=== PATIENT | male | born 1955 | race Caucasian/White ===

== ENCOUNTER 2016-12-12 17:54 | Inpatient (IN) ==
[2016-12-12] MEDS ORDERED: Aspirin 81 MG TAB.CHEW PO ONE (18:52)
[2016-12-12 19:01] LABS: Basophils # 0.1 K/mcL (0.0-0.2); Basophils % 0.7 %; Eosinophils # 0.2 K/mcL (0.0-0.6); Eosinophils % 3.1 %; Hematocrit 45.1 % (37.5-50.1); Hemoglobin 14.7 g/dL (12.9-16.9); Immature Granulocytes % 0.4 % (0-4); Immature Platelets 1.5 % (1.1-6.1); Lymphocytes % 13.7 %; Mean Corpuscular HGB Conc 32.6 g/dL (31.6-35.5); Mean Corpuscular Hemoglobin 29.6 pg (28.0-33.3); Mean Corpuscular Volume 90.9 fL (83.0-100.0); Mean Platelet Volume 9.2 fL (9.4-12.4); Monocytes # 0.8 K/mcL (0.0-1.3); Monocytes % 11.2 %; Neutrophils # 5.3 K/mcL (1.6-8.9); Platelet Count 180 K/mcL (140-400); Red Blood Count 4.96 M/mcL (4.19-5.50); Red Cell Distribution Width 13.3 % (11.5-14.5); Segmented Neutrophils % 70.9 %
[2016-12-12 19:14] LABS: Alanine Aminotransferase 66 Units/L (0-55); Albumin 3.4 g/dL (3.5-5.0); Albumin/Globulin Ratio 0.8 (1.1-2.2); Alkaline Phosphatase 184 Units/L (38-126); Amylase 50 Units/L (25-125); Aspartate Amino Transferase 51 Units/L (5-34); BUN/Creatinine Ratio 17 (6-26); Bilirubin,Direct 0.7 mg/dL (0.0-0.5); Bilirubin,Indirect 0.6 mg/dL (0.0-1.2); Bilirubin,Total 1.3 mg/dL (0.2-1.2); Blood Urea Nitrogen 17 mg/dL (8-26); Calcium 10.3 mg/dL (8.6-10.8); Carbon Dioxide 20 mEq/L (19-29); Chloride 104 mEq/L (98-109); Globulin 4.2 g/dL (2.4-3.5); Glucose 130 mg/dL (70-99); Lipase 20 Units/L (8-78); Osmolality,Calculated 281 (280-300); Potassium 4.8 mEq/L (3.5-4.5); Sodium 134 mEq/L (136-145); Total Protein 7.6 g/dL (6.0-8.3); eGFR For African Americans > 60 (> 60); eGFR For Non-African Americans > 60 (> 60)
[2016-12-12] MEDS ORDERED: GI Cocktail 40 ML EACH PO ONE (19:44)
--- NOTE | 2016-12-12 19:55 | Emergency Department Note ---
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 Patient' s had a progression of worsening intake of solids to liquids. Patient is complaining of some chest pain on the left side and localizes it to the left ribs. Patient states that he has GI follow-up for a consultation to set up an upper endoscopy in 2 weeks. He states that he cannot handle the pain and discomfort while he was consuming food anymore. Pain Scale: 8 - Related Data Previous Rx's Medication Instructions Recorded Albuterol Sulfate [Albuterol 2 puff IH Q6HR PRN #1 hfa.aer.ad 11/08/15 Inhaler] HYDROcodone/Acet 5/325 mg [Sharps 1 tab PO Q4-6H PRN #30 tablet 12/15/16 5-325 mg] Nicotine Patch [Nicoderm] 21 mg TD DAILY #30 patch.td24 12/15/16 Omeprazole [PriLOSEC] 40 mg PO DAILY #30 cap 12/15/16 Allergies Allergy/AdvReac Type Severity Reaction Status Date / Time iodine Allergy Vomiting Verified 12/12/16 18:13 All systems ED: reviewed and negative except as stated. Constitutional: Reports: weakness, weight change (30 pound weight loss in 2 months). Denies: fever, chills ENT ED: Reports: dysphagia. Denies: congestion Cardiovascular: Reports: chest pain (Left-sided, and retrosternal). Denies: edema Respiratory: Reports: cough. Denies: dyspnea Gastrointestinal: Reports: abdominal pain (Epigastric). Denies: nausea, vomiting Musculoskeletal: Denies: back pain, neck pain Integumentary: Denies: rash Neurological: Denies: weakness, numbness, paresthesias Past Medical History - Past Medical History Medical history: Reports: diabetes Psychiatric history: Reports: no psych history - Social History Smoking Status: Current every day smoker Smokeless Tobacco Status: No Alcohol use: Reports: none Drug use: Reports: none Physical Exam - General Limitations: no limitations General appearance: alert, in no apparent distress - Head Head exam: atraumatic, normocephalic - Eye Eye exam: Absent: scleral icterus, conjunctival injection - ENT ENT exam: mucous membranes dry - Neck Neck exam: Present: trachea midline. Absent: tenderness, meningismus - Chest Chest inspection: Present: normal inspection, symmetric chest wall rise, tenderness (To palpation of the left ribs, sternum) - Respiratory Respiratory exam: Present: normal lung sounds bilaterally. Absent: respiratory distress, accessory muscle use - Cardiovascular Cardiovascular exam: Present: normal rhythm, tachycardia, normal heart sounds - Abdominal Exam Abdominal exam: Present: soft, tenderness. Absent: rebound Abdominal tenderness: Present: diffuse, moderate (Tenderness to palpation) - Extremities Exam Extremities exam: Present: normal capillary refill. Absent: pedal edema, calf tenderness - Neurological Exam Neurological exam: Present: alert, oriented X3, CN II-XII intact - Psychiatric Psychiatric exam: Present: normal affect, normal mood - Skin Skin exam: Present: warm, dry, intact, normal color, rash Course Course Narrative: This is a 61-year-old male with a 2 month history of weight loss and worsening dysphagia from solids liquids. This time, this is most concerning for cancer of the esophagus. Patient had normal vital signs. We performed a chest x-ray, EKG, d-dimer, CBC, CMP, troponin. D-dimer came back elevated and we performed a CT angiogram of the chest. - Reevaluation(s) Reevaluation #1: Patient and elevated hepatic transaminases. We ordered a right upper quadrant ultrasound. This revealed innumerable hypoechoic masses throughout the liver with largest measuring 5.8 x 4.6. Findings here were most compatible with metastatic disease. CTA of the chest performed revealed findings are compatible with an esophageal carcinoma with evidence of metastatic disease to the lower mediastinum, the upper abdominal lymph nodes, the left adrenal gland, and to the liver. I discussed these findings with the patient and the diagnosis of his esophageal mass as well as the metastasis to his liver, adrenal gland, and mediastinum. I admitted this patient to the hospitalist due to further management and evaluation of his new diagnosis. The hospitalist agreed to accept admission. Family understands that the patient has esophageal cancer with metastasis to multiple organs. Patient was given 4 morphine during his visit. He was also offered more if he needed it. Patient is currently hemodynamically stable upon admission to the hospital. Chest X-Ray 12/12/16 18:14 IMPRESSION: No acute process. D/ / Karl Hernandez MD / Karl Hernandez MD Interpreting Provider: Karl Hernandez MD Chest CTA 12/12/16 19:57 IMPRESSION: 1. Findings are most compatible with in esophageal carcinoma with evidence of metastatic disease to the lower mediastinum, the upper abdominal lymph nodes, the left adrenal gland, and to the liver. Direct visualization and histopathologic correlation is necessary. 2. No evidence of pulmonary embolism or aortic dissection. D/ / Obinna Pérez MD / Obinna Pérez MD Interpreting Provider: Obinna Pérez MD Liver Ultrasound 12/12/16 20:18 IMPRESSION: 1. Innumerable hypoechoic masses throughout the liver with the largest measuring 5.8 x 4.6 cm. Findings most compatible with metastatic disease and contrasted CT of the abdomen is recommended for further evaluation. D/ / Jelani Yañez MD / Jelani Yañez MD Interpreting Provider: Jelani Yañez MD Vital Signs Temperature 98.1 F 12/12/16 18:10 Pulse Rate 101 12/12/16 18:10 Respiratory Rate 18 12/12/16 18:10 Blood Pressure 119/56 12/12/16 18:10 O2 Sat by Pulse Oximetry 94 12/12/16 18:10 Temperature 98.1 F 12/12/16 18:10 Pulse Rate 69 12/12/16 23:13 Respiratory Rate 22 12/12/16 22:04 Blood Pressure 109/67 12/12/16 23:13 O2 Sat by Pulse Oximetry 94 12/12/16 23:13 Oxygen Delivery Oxygen Delivery Room Air Time: 22:55 Vital Signs Temperature 98.1 F 12/12/16 18:10 Pulse Rate 101 12/12/16 18:10 Respiratory Rate 18 12/12/16 18:10 Blood Pressure 119/56 12/12/16 18:10 O2 Sat by Pulse Oximetry 94 12/12/16 18:10 Temperature 97.4 F L 12/15/16 17:22 Pulse Rate 79 12/15/16 17:22 Respiratory Rate 16 12/15/16 17:22 Blood Pressure 126/75 12/15/16 17:22 O2 Sat by Pulse Oximetry 94 12/15/16 17:22 Oxygen Delivery Oxygen Delivery Room Air Medical Decision Making - Medical Records Medical records reviewed: Yes I reviewed the patient's medical records. - Lab Data Lab results reviewed: Yes I reviewed the patient's lab results. Result diagrams: 12/12/16 18:50 12/12/16 18:50 Lab Results 12/12/16 12/12/16 12/12/16 Range/Units 18:50 18:50 18:50 WBC 7.5 (4.3-11.1) K/mcL RBC 4.96 (4.19-5.50) M/mcL Hgb 14.7 (12.9-16.9) g/dL Hct 45.1 (37.5-50.1) % MCV 90.9 (83.0-100.0) fL MCH 29.6 (28.0-33.3) pg MCHC 32.6 (31.6-35.5) g/dL RDW 13.3 (11.5-14.5) % Plt Count 180 (140-400) K/mcL MPV 9.2 L (9.4-12.4) fL Immature Gran % 0.4 (0-4) % Seg Neutrophils % 70.9 % Lymphocytes % 13.7 % Monocytes % 11.2 % Eosinophils % 3.1 % Basophils % 0.7 % Neutrophils # 5.3 (1.6-8.9) K/mcL Lymphocytes # 1.0 (0.6-4.6) K/mcL Monocytes # 0.8 (0.0-1.3) K/mcL Eosinophils # 0.2 (0.0-0.6) K/mcL Basophils # 0.1 (0.0-0.2) K/mcL Immature Plt Fraction 1.5 (1.1-6.1) % PT (9.4-12.1) Seconds INR D-Dimer (0-500) ng/mLFEU Sodium 134 L (136-145) mEq/L Potassium 4.8 H (3.5-4.5) mEq/L Chloride 104 (98-109) mEq/L Carbon Dioxide 20 (19-29) mEq/L BUN 17 (8-26) mg/dL Creatinine 1.02 (0.72-1.25) mg/dL Est GFR ( Amer) > 60 (> 60) Est GFR (Non-Af Amer) > 60 (> 60) BUN/Creatinine Ratio 17 (6-26) Glucose 130 H (70-99) mg/dL POC Glucose (58-89) Calculated Osmolality 281 (280-300) Calcium 10.3 (8.6-10.8) mg/dL Total Bilirubin 1.3 H (0.2-1.2) mg/dL Direct Bilirubin 0.7 H (0.0-0.5) mg/dL Indirect Bilirubin 0.6 (0.0-1.2) mg/dL AST 51 H (5-34) Units/L ALT 66 H (0-55) Units/L Alkaline Phosphatase 184 H (38-126) Units/L Troponin I 0.01 (0-0.03) ng/mL Serum Total Protein 7.6 (6.0-8.3) g/dL Albumin 3.4 L (3.5-5.0) g/dL Globulin 4.2 H (2.4-3.5) g/dL Albumin/Globulin Ratio 0.8 L (1.1-2.2) Amylase 50 (25-125) Units/L Lipase 20 (8-78) Units/L 12/12/16 12/13/16 12/13/16 Range/Units 18:50 02:01 07:15 WBC (4.3-11.1) K/mcL RBC (4.19-5.50) M/mcL Hgb (12.9-16.9) g/dL Hct (37.5-50.1) % MCV (83.0-100.0) fL MCH (28.0-33.3) pg MCHC (31.6-35.5) g/dL RDW (11.5-14.5) % Plt Count (140-400) K/mcL MPV (9.4-12.4) fL Immature Gran % (0-4) % Seg Neutrophils % % Lymphocytes % % Monocytes % % Eosinophils % % Basophils % % Neutrophils # (1.6-8.9) K/mcL Lymphocytes # (0.6-4.6) K/mcL Monocytes # (0.0-1.3) K/mcL Eosinophils # (0.0-0.6) K/mcL Basophils # (0.0-0.2) K/mcL Immature Plt Fraction (1.1-6.1) % PT (9.4-12.1) Seconds INR D-Dimer 6172 H (0-500) ng/mLFEU Sodium (136-145) mEq/L Potassium (3.5-4.5) mEq/L Chloride (98-109) mEq/L Carbon Dioxide (19-29) mEq/L BUN (8-26) mg/dL Creatinine (0.72-1.25) mg/dL Est GFR ( Amer) (> 60) Est GFR (Non-Af Amer) (> 60) BUN/Creatinine Ratio (6-26) Glucose (70-99) mg/dL POC Glucose 132 H 110 H (58-89) Calculated Osmolality (280-300) Calcium (8.6-10.8) mg/dL Total Bilirubin (0.2-1.2) mg/dL Direct Bilirubin (0.0-0.5) mg/dL Indirect Bilirubin (0.0-1.2) mg/dL AST (5-34) Units/L ALT (0-55) Units/L Alkaline Phosphatase (38-126) Units/L Troponin I (0-0.03) ng/mL Serum Total Protein (6.0-8.3) g/dL Albumin (3.5-5.0) g/dL Globulin (2.4-3.5) g/dL Albumin/Globulin Ratio (1.1-2.2) Amylase (25-125) Units/L Lipase (8-78) Units/L 09/18/17 Range/Units 08:15 WBC (4.3-11.1) K/mcL RBC (4.19-5.50) M/mcL Hgb (12.9-16.9) g/dL Hct (37.5-50.1) % MCV (83.0-100.0) fL MCH (28.0-33.3) pg MCHC (31.6-35.5) g/dL RDW (11.5-14.5) % Plt Count (140-400) K/mcL MPV (9.4-12.4) fL Immature Gran % (0-4) % Seg Neutrophils % % Lymphocytes % % Monocytes % % Eosinophils % % Basophils % % Neutrophils # (1.6-8.9) K/mcL Lymphocytes # (0.6-4.6) K/mcL Monocytes # (0.0-1.3) K/mcL Eosinophils # (0.0-0.6) K/mcL Basophils # (0.0-0.2) K/mcL Immature Plt Fraction (1.1-6.1) % PT 12.9 H (9.4-12.1) Seconds INR 1.2 D-Dimer (0-500) ng/mLFEU Sodium (136-145) mEq/L Potassium (3.5-4.5) mEq/L Chloride (98-109) mEq/L Carbon Dioxide (19-29) mEq/L BUN (8-26) mg/dL Creatinine (0.72-1.25) mg/dL Est GFR ( Amer) (> 60) Est GFR (Non-Af Amer) (> 60) BUN/Creatinine Ratio (6-26) Glucose (70-99) mg/dL POC Glucose (58-89) Calculated Osmolality (280-300) Calcium (8.6-10.8) mg/dL Total Bilirubin (0.2-1.2) mg/dL Direct Bilirubin (0.0-0.5) mg/dL Indirect Bilirubin (0.0-1.2) mg/dL AST (5-34) Units/L ALT (0-55) Units/L Alkaline Phosphatase (38-126) Units/L Troponin I (0-0.03) ng/mL Serum Total Protein (6.0-8.3) g/dL Albumin (3.5-5.0) g/dL Globulin (2.4-3.5) g/dL Albumin/Globulin Ratio (1.1-2.2) Amylase (25-125) Units/L Lipase (8-78) Units/L - Radiology Data Radiology results reviewed: Yes I reviewed the patient's radiology results. Chest X-Ray 12/12/16 18:14 IMPRESSION: No acute process. D/ / Karl Hernandez MD / Karl Hernandez MD Interpreting Provider: Karl Hernandez MD Chest CTA 12/12/16 19:57 IMPRESSION: 1. Findings are most compatible with in esophageal carcinoma with evidence of metastatic disease to the lower mediastinum, the upper abdominal lymph nodes, the left adrenal gland, and to the liver. Direct visualization and histopathologic correlation is necessary. 2. No evidence of pulmonary embolism or aortic dissection. D/ / Obinna Pérez MD / Obinna Pérez MD Interpreting Provider: Obinna Pérez MD Liver Ultrasound 12/12/16 20:18 IMPRESSION: 1. Innumerable hypoechoic masses throughout the liver with the largest measuring 5.8 x 4.6 cm. Findings most compatible with metastatic disease and contrasted CT of the abdomen is recommended for further evaluation. D/ / Jelani Yañez MD / Jelani Yañez MD Interpreting Provider: Jelani Yañez MD Tibia/Fibula X-Ray 12/14/16 00:00 IMPRESSION: No acute osseous abnormality the right tib-fib. No radiopaque foreign body. D/ / Riccardo Guo MD / Riccardo Guo MD Interpreting Provider: Riccardo Guo MD Brain MRI 12/14/16 07:59 IMPRESSION: 1. No acute intracranial abnormality or evidence of intracranial metastatic disease. 2. Minimal chronic white matter microvascular ischemic changes. D/ / Wilian Santos MD / Wilian Santos MD Interpreting Provider: Wilian Santos MD Guidance Needle Placement Ultrasound 12/15/16 00:00 IMPRESSION: Successful ultrasound and fluoroscopy guided Port-A-Cath placement D/ / 12/15/2016 15:33:27 Jacquelin Hale MD / nu Interpreting Provider: Jacquelin Hale MD Insertion Tunneled Catheter 12/15/16 06:58 IMPRESSION: Successful ultrasound and fluoroscopy guided Port-A-Cath placement D/ / 12/15/2016 15:33:27 Jacquelin Hale MD / nu Interpreting Provider: Jacquelin Hale MD - EKG Data EKG #1 EKG attestation: Yes I reviewed and interpreted this EKG. EKG results narrative: December 13 1999 1718:19 And regular at 102 bpm, IN interval 190 ms, QRS duration 89 ms, QT 326 ms, QTC 385 ms, normal axis. Sinus tachycardia with a ventricular rate of 102 bpm. There are no ischemic EKG changes noted on this. This EKG is unchanged from April 16, 2016. Attestation Statement - Attestation Attestation: I examined this patient and my medical decision-making was reviewed with the Resident Physician, Dr. Triana. I agree with the documented findings, disposition and treatment plan as described except to the extent set forth below. Patient is a 61-year-old white male with a history of smoking and hypertension who presents to the emergency department with a two-month history of gradually worsening dysphagia and odynophagia, reported 30 pound weight loss, and left chest wall pain. Patient reports that he has seen his family physician over the past month about these symptoms and has been referred to a GI specialist, and this appointment is coming up in the next 2 weeks. Patient states that he cannot tolerate the difficulty with swallowing and is to the point where he is strictly on liquids at this time, as he is unable to tolerate any solids due to difficulty swallowing and painful swallowing. Patient arrives with stable vital signs, no signs of respiratory distress or difficulty managing secretions. Patient denies any sudden onset of pain or difficulty swallowing with eating then initiated these symptoms. Patient has never had any difficulty with esophageal foreign body or required endoscopy. No history of GI bleeding. She denies any fevers or chills and is hemodynamically stable on arrival. I agree with patient's physical exam findings as documented in the chart. Patient underwent initial lab evaluation and EKG. EKG was normal sinus with no acute evidence of ischemia. Patient's laboratory values were concerning for a significantly elevated d-dimer , as well as mild elevations in his transaminases, alkaline phosphatase representing an obstructive pattern. Lipase is normal. Troponin is normal. Based on these findings we felt the best imaging study to start with would be to CT his chest. This would involve further evaluation of his clinical symptoms involving his left-sided chest pain as well as swallowing difficulty and his elevated labs. Patient's renal function is good and can tolerate the contrast with no prior allergies. Patient's CT unfortunately shows a distal esophageal mass causing esophageal narrowing with metastatic disease to the liver, mediastinum and lymph nodes. Additional details were added with right upper quadrant ultrasound. Patient remained hemodynamically stable in the ED and after pain medicines was resting more comfortably. We discussed the case with the hospitalist who accepted patient for admission for further evaluation and treatment.
[2016-12-12] MEDS ORDERED: *HR* HYDROcodone/Acet 5/325 mg TABLET PO ONE (20:17)
[2016-12-12] MEDS ORDERED: Ondansetron ODT 4 MG TAB.RAPDIS SL ONE (20:22)
[2016-12-12] MEDS ORDERED: *HR* Morphine 2 MG/ML SYRINGE IVP ONE (20:33)
[2016-12-12] MEDS ORDERED: 0.9 % Sodium Chloride 1,000 ML IVC ONE (20:33)
[2016-12-12] MEDS ORDERED: D5% in Water 1,000 ML IVC SCH (23:15)
[2016-12-13] MEDS: *HR* HYDROcodone/Acet 5/325 mg TABLET PO PRN (04:16)
[2016-12-13] MEDS: 0.9 % Sodium Chloride 1,000 ML IVC SCH ×3 (04:19→17:57)
[2016-12-13] MEDS ORDERED: Naloxone 0.4 MG/ML INJ IVP PRN (08:02)
--- NOTE | 2016-12-13 08:10 | Internal Med History&Physical ---
Date of Encounter: 12/13/16 Time of Encounter: 08:00 Assessment and Plan (1) Esophageal mass Current visit: Yes Status: Acute I spent considerable amount of time explaining to the patient what our understanding is up once going on with him. Patient understands that he likely has a metastatic esophageal cancer. I did discuss the case with Dr. Tidwell, patient will remain nothing by mouth with plans for EGD today with biopsy of his mass. We will need oncology as well. As patient is nothing by mouth with significant dysphagia, will use IV pain medicines temporarily. (2) Diabetes Current visit: Yes Status: Acute Will check blood sugars and use corrective insulin as necessary. Qualifiers: Diabetes mellitus type: type 2 Diabetes mellitus complication status: without complication Diabetes mellitus refund specialist insulin use: without fci use Qualified Code(s): E11.9 - Type 2 diabetes mellitus without complications (3) Tobacco abuse Current visit: Yes Status: Acute Patient offered NicoDerm patch. Presently not interested. (4) Obesity Current visit: Yes Status: Acute Qualifiers: Obesity type: unspecified obesity type Body mass index: BMI 30.0-30.9 Qualified Code(s): E66.9 - Obesity, unspecified; Z68.30 - Body mass index (BMI) 30.0-30.9, adult (5) Obesity (BMI 30-39.9) Current visit: Yes Status: Acute (6) Obesity (BMI 30.0-34.9) Current visit: Yes Status: Acute Internal Medicine - H&P: HPI Admitted From: Emergency Dept Plans for Post Hospital Care: Home History of present illness: Mr. Varghese is a 61 year old male who has a history of tobacco abuse and diabetes mellitus type 2 not on medication. He presents to emergency room with abdominal pain. He describes it as a sharp achy abdominal pain in the left upper quadrant which she has had for several months. It is gotten worse to where it is 10 out of 10 in severity. 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 Patient states he has had a 30 pound weight loss in the last few months. No sweats. He also states that whenever he eats the food gets stuck in his esophagus and he often has to spend a lot of time doing maneuvers to try to get it down. Patient on arrival to the emergency room was hemodynamically stable although his blood pressure was slightly soft to 87/50, it is now improved. Labs were essentially unremarkable with the exception of a d-dimer of 6172. M he appeared in no acute distress but did have markedly diffuse abdominal wall fullness and tenderness. CT scan of his chest showed what appears to be metastatic esophageal cancer with lymphangitic spread, metastases to the adrenal gland and liver. An ultrasound performed also showed extensive liver metastatic disease. Patient was admitted for further workup and management. Patient denies chest pain or shortness of breath. He has no nausea, vomiting, diarrhea. No fevers or chills. Past Med Surg Social Fam HX - Past Medical History Medical history: diabetes Psychiatric history: no psych history - Past Surgical History Surgical History: appendectomy - Social History Smoking Status: Current every day smoker Packs per day: 1 Smokeless Tobacco Status: No Alcohol use: none Drug use: none Occupational status: employed Current living situation: Home Activity Level: Independent ambulation Recent Out of Country Travel Within the Last 8 Weeks: No Exposure or Possible Exposure to Illness During Travel: No Internal Medicine - H&P: Meds Albuterol Sulfate [Albuterol Inhaler] 2 puff IH Q6HR PRN #1 hfa.aer.ad 11/08/15 [Rx] Ranitidine HCl [Zantac] 150 mg PO BID 12/13/16 [History] 3 Allergy/AdvReac Type Severity Reaction Status Date / Time iodine Allergy Vomiting Verified 12/12/16 18:13 All Systems PM: A 10-system review of systems was performed and is negative for pertinent findings except as documented above in the HPI. - Constitutional Vitals: Temp Pulse Resp BP Pulse Ox 97.7 F 69 18 104/63 92 12/13/16 07:10 12/13/16 07:10 12/13/16 07:10 12/13/16 07:10 12/13/16 07:10 General appearance: Present: no acute distress, obese - Head Head exam: Present: atraumatic, normocephalic - Eye Eye exam: Present: PERRL, conjuntiva pink, sclera anicteric Pupils: Present: PERRL - Neck Neck exam general surgery: Present: supple, trachea midline. Absent: lymphadenopathy - Respiratory Respiratory exam: Present: CTAB. Absent: accessory muscle use, rales, rhonchi, wheezes - Cardiovascular Cardiovascular exam: Present: RRR, +S1, +S2. Absent: diastolic murmur, gallop, rubs, systolic murmur - GI/Abdominal GI/Abdominal exam: Present: distended (Abdomen is protuberant and full. He has diffuse tenderness in his left upper quadrant and right upper quadrant. No rebound or guarding.), normal bowel sounds, soft, tenderness, no peritoneal signs - Extremities Exam Extremities exam: Present: warm, radial pulses palpable and symmetrical. Absent : calf tenderness, cyanotic, pedal edema - Neurological Exam Neurological exam: Present: CN II-XII intact, oriented X3, no focal deficits. Absent: pronater drift, facial droop, speech deficit - Skin Skin exam: Present: dry, intact Internal Med - H&P Results - Labs CBC & Chem 7: 12/12/16 18:50 12/12/16 18:50
[2016-12-13] MEDS ORDERED: *HR* Dextrose 50 % in Water (Syg) 50 ML SYRINGE IVP PRN (08:16)
[2016-12-13] MEDS ORDERED: Dextrose Gel 15 GM PO PRN ×2 (08:16)
[2016-12-13] MEDS ORDERED: D5% in Water 1,000 ML IVC PRN (08:16)
[2016-12-13 08:37] LABS: INR 1.2; Prothrombin Time 12.9 Seconds (9.4-12.1)
[2016-12-13] MEDS: Famotidine 20 MG TABLET PO SCH ×2 (08:54→19:23)
[2016-12-13] MEDS: *HR* HYDROmorphone (PF) 1 MG/ML SYRINGE IVP PRN ×4 (09:41→23:00)
--- NOTE | 2016-12-13 11:32 | Gastroenterology Consult Note ---
<MandeepBernardo castillo - Last Filed: 12/13/16 12:46> Date of Encounter: 12/13/16 Time of Encounter: 11:26 - Assessment and plan (1) Esophageal mass Current Visit: Yes Status: Acute Assessment and plan: CT chest showed likely esophageal carcinoma with evidence of metastatic disease in the lower mediastinum, upper abdominal lymph nodes, left adrenal gladn, and liver, no evidence of PE AST, ALT, ALk phos elevated. D-dimer 6172 Plan: NPO diet EGD later today. (2) Dysphagia Current Visit: Yes Status: Acute Assessment and plan: patient reports dysphagia to solids, mostly dense proteins. He states sometimes the food gets "stuck" in his esophagus and he has to drink a lot of water to help it go down. this is likely secondary to esophageal mass. plan as above Qualifiers: Dysphagia type: esophageal phase Qualified Code(s): R13.14 - Dysphagia, pharyngoesophageal phase - Time Spent With Patient Total time spent is greater than 50% in coordination of care (as documented) at patient's floor/unit and/or counseling patient: GI History of Present Illness - Data of Consult Consult date: 12/13/16 Requesting Physician: Madalyn Hope MD - Consult Narrative Reason for consult: possible metastatic esophageal cancer. History of present illness: Mr. Varghese is a 61 year old male with PMhx of tobacco abuse, DM. Patient arrived to the hospital with chief complaint of abdominal pain in left upper quadrant. Patient reports a recent 30 lb weight loss in less than 2 months. He also complains of chest pain that radiates to the back. the chest pain is reproducible upon exam. Patient has smoked one pack per day for the past 50 years. He denies hematochezia or melena. denies hematuria. admits to shortness of breath. he denies nausea, vomiting, diarrhea, fever, chills. he has trouble swallowing only solids but not liquids. When he eats mostly meats or other dense proteins, the food gets stuck during swallowing and he has to drink a lot of water to help it go down. Past Med Surg Social Fam HX - Past Medical History Medical history: diabetes Psychiatric history: no psych history - Past Surgical History Surgical History: appendectomy - Social History Smoking Status: Current every day smoker Packs per day: 1 Smokeless Tobacco Status: No Alcohol use: none Drug use: none All systems PM: reviewed and no additional remarkable complaints except as stated - Constitutional Vitals: Temp Pulse Resp BP Pulse Ox 97.7 F 69 18 104/63 92 12/13/16 07:10 12/13/16 07:10 12/13/16 07:10 12/13/16 07:10 12/13/16 07:10 General appearance: Present: A&O X 3, no acute distress, answers questions appropriately - Head Head exam: Present: atraumatic, normocephalic - Respiratory Respiratory exam: Present: CTAB - Cardiovascular Cardiovascular exam: Present: RRR, +S1, +S2 Additional comments: chest pain in left/middle substernal and epigastric area that is reproducible upon exam. - GI/Abdominal GI/Abdominal exam: Present: soft, tenderness. Absent: distended Additional comments: left upper quadrant abdominal tenderness to palpation. - Extremities Exam Extremities exam: Absent: cyanotic, pedal edema - Neurological Exam Neurological exam: Present: alert, oriented X3, no focal deficits Results - Labs CBC & Chem 7: 12/12/16 18:50 12/12/16 18:50 Labs: Last Result Calcium 10.3 mg/dL (8.6-10.8) 12/12/16 18:50 Troponin I 0.01 ng/mL (0-0.03) 12/12/16 18:50 Entire Visit Hgb 14.7 g/dL (12.9-16.9) 12/12/16 18:50 Hct 45.1 % (37.5-50.1) 12/12/16 18:50 PT 12.9 Seconds (9.4-12.1) H 12/13/16 08:15 Total Bilirubin 1.3 mg/dL (0.2-1.2) H 12/12/16 18:50 AST 51 Units/L (5-34) H 12/12/16 18:50 ALT 66 Units/L (0-55) H 12/12/16 18:50 Amylase 50 Units/L (25-125) 12/12/16 18:50 Lipase 20 Units/L (8-78) 12/12/16 18:50 - ABG ABG results: PT/INR, D-dimer PT 12.9 Seconds (9.4-12.1) H 12/13/16 08:15 D-Dimer 6172 ng/mLFEU (0-500) H 12/12/16 18:50 Consult Discharge Plan - Plan Referrals: [facility] DIRECTOR OF FIRST IMPRESSIONS [Advanced Practice Nurse] - 12/24/16 1:00 pm (New patient and hospital follow up. Packet will be mailed to patient and they will need to bring packet with forms filled out, photo id, insurance card and any medications.) <Camilla Tidwell - Last Filed: 12/13/16 19:01> Date of Encounter: 12/13/16 Time of Encounter: 13:30 - Time Spent With Patient Total time spent is greater than 50% in coordination of care (as documented) at patient's floor/unit and/or counseling patient: GI History of Present Illness - Data of Consult Requesting Physician: Madalyn Hope MD - Consult Narrative History of present illness: Mr. Varghese is a 61 year old male - Constitutional Vitals: Temp Pulse Resp BP Pulse Ox 98.5 F 71 16 100/59 95 12/13/16 18:32 12/13/16 18:32 12/13/16 18:32 12/13/16 18:32 12/13/16 18:32 Results - Labs CBC & Chem 7: 12/12/16 18:50 12/12/16 18:50 Labs: Last Result Calcium 10.3 mg/dL (8.6-10.8) 12/12/16 18:50 Troponin I 0.01 ng/mL (0-0.03) 12/12/16 18:50 Entire Visit Hgb 14.7 g/dL (12.9-16.9) 12/12/16 18:50 Hct 45.1 % (37.5-50.1) 12/12/16 18:50 PT 12.9 Seconds (9.4-12.1) H 12/13/16 08:15 Total Bilirubin 1.3 mg/dL (0.2-1.2) H 12/12/16 18:50 AST 51 Units/L (5-34) H 12/12/16 18:50 ALT 66 Units/L (0-55) H 12/12/16 18:50 Amylase 50 Units/L (25-125) 12/12/16 18:50 Lipase 20 Units/L (8-78) 12/12/16 18:50 - ABG ABG results: PT/INR, D-dimer PT 12.9 Seconds (9.4-12.1) H 12/13/16 08:15 D-Dimer 6172 ng/mLFEU (0-500) H 12/12/16 18:50 - Attending Attestation I examined this patient and my medical decision-making was reviewed with the Resident Physician. I agree with the documented findings, disposition and treatment plan as described except to the extent set forth below.
[2016-12-13] MEDS: Insulin LISPRO 300 UNITS/3 ML VIAL SQ SCH ×2 (12:49→18:00)
--- NOTE | 2016-12-13 13:12 | Anesthesia Evaluation PreOp ---
Date of Encounter: 12/13/16 Time of Encounter: 13:10 - Past History Planned Operation: EGD Cardiac History: Denies any Significant Hx Pulmonary History: Smoker, Pack/yr (1 ppd) [employer] History: Denies Any Significant HX Other Medical History: Diabetes Type II, Other (Esophageal Mass - difficulty swallowing) Anesthesia History: No Prior Anesthetic Complications, Past Anesthesia (Appy) Alcohol Use: none Drug use: none Medications and Allergies Albuterol Sulfate [Albuterol Inhaler] 2 puff IH Q6HR PRN #1 [email or web address] 11/08/15 [Rx] Ranitidine HCl [Zantac] 150 mg PO BID 12/13/16 [History] 3 Allergy/AdvReac Type Severity Reaction Status Date / Time iodine Allergy Vomiting Verified 12/12/16 18:13 - Meds/Allergy Pre-op Review Medications Reviewed: Yes Allergies Reviewed: Yes Beta Blockers on Current Med List: No Anesthesia Results - Labs 12/12/16 18:50 12/12/16 18:50 - Imaging EKG: image reviewed (SINUS RHYTHM WITH OCCASIONAL SUPRAVENTRICULAR PREMATURE COMPLEXES) Anesthesia Exam O2 Sat Height 1.78 m Weight 102.24 kg Weight 102.512 kg O2 Sat by Pulse Oximetry 92 O2 Sat by Pulse Oximetry 91 O2 Sat by Pulse Oximetry 92 O2 Sat by Pulse Oximetry 94 O2 Sat by Pulse Oximetry 93 O2 Sat by Pulse Oximetry 93 O2 Sat by Pulse Oximetry 96 O2 Sat by Pulse Oximetry 94 O2 Sat by Pulse Oximetry 94 Vital Signs Temp Pulse Resp BP Pulse Ox 98.1 F 101 18 119/56 94 12/12/16 18:10 12/12/16 18:10 12/12/16 18:10 12/12/16 18:10 12/12/16 18:10 Vital Signs/O2 Sat, Most Current Temp Pulse Resp BP Pulse Ox 97.7 F 69 18 104/63 92 12/13/16 07:10 12/13/16 07:10 12/13/16 07:10 12/13/16 07:10 12/13/16 07:10 Height: 5'10'' Weight: 225# NPO (# of Hours): > 8 hrs Pain Scale: 0 Pain Scale Used: Numeric (1 - 10) - HEENT Pupil (Motor): Pupils equal, EOMI Mallampati: III Teeth: Edentulous Oral Opening: Greater than 3 - [employer] LOC: Oriented [employer] Motor: Normal RUE, Normal LUE, Normal RLE, Normal LLE, Normal Face [employer] Sensory: Normal: RUE, LUE, RLE, LLE, Face - Cardiac Rhythm: Regular Murmur: None JVD: No Carotid Bruit: No - Pulmonary Breath Sounds: bilateral Clear Respiratory Effort: Symmetrical Anesthesia Assess/Plan ASA Score: 3 Modified [place] Scale for Level of Consciousness: Cooperative, oriented, and tranquil Anesthetic Plan: MAC Autologous Blood: Yes Monitoring Plan: Standard Monitors Recovery Plan: Other
[2016-12-13] MEDS ORDERED: Simethicone 40 MG/0.6 ML MLS IR ONE (13:41)
[2016-12-13] MEDS ORDERED: Tetracaine/Benzocaine/Butamben 200MG/SPRAY (100SPY/BOT) MM ONE (13:41)
[2016-12-13] MEDS ORDERED: *HR* Propofol 200 MG/20 ML VIAL IVP ONE (17:55)
[2016-12-13] MEDS: Nicotine 21 MG PATCH.TD24 TD SCH (17:56)
[2016-12-14] MEDS: Insulin LISPRO 300 UNITS/3 ML VIAL SQ SCH ×4 (00:01→18:21)
[2016-12-14] MEDS: *HR* HYDROcodone/Acet 5/325 mg TABLET PO PRN ×4 (03:13→22:51)
[2016-12-14] MEDS: 0.9 % Sodium Chloride 1,000 ML IVC SCH (04:03)
--- NOTE | 2016-12-14 07:58 | Oncology Inp Consult Note ---
Date of Encounter: 12/14/16 Time of Encounter: 06:40 Assessment and Plan (1) Esophageal mass Status: Acute Assessment and plan: I met with the patient, his and daughter today. I reviewed their history, pathology and imaging. 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 Biopsy from the esophageal mass is currently pending. As he does complain of headache, I have ordered MRI imaging the brain. Outpatient PET CT will be obtained after discharge. To aid with his significant dysphagia, I have discussed this with Dr. Tidwell for distal esophageal stent placement. I have asked my navigator to obtain microsatellite instability testing as well as HER-2 testing on the biopsy specimen from yesterday. I will arrange for outpatient PET CT as well. We will continue to follow while he is hospitalized. Please do not hesitate to call my cell phone at [phone] with concerns or questions - Data of Consult Requesting Physician: Edilia Burk MD Primary Care Provider: PCP NONE - Consult Narrative Reason for consult: Esophageal cancer History of present illness: Mr. Varghese is a 61 year old male who has a long-standing history of GERD dating back nearly 20 years. Patient self medicated this with vinegar. Over the past 3 months or so, he has developed worsening dysphagia. This was initially to hamburgers as well other meat products. It is now progressed to some liquids. There is associated odynophagia as well. He also notes pain that radiates along the bilateral chest wall. He has lost nearly 34 pounds during this period of time. His primary care physician attempted to consult gastroenterology in [place] but there was a two-month wait. As his symptoms progressed, he presented to the ED. After admission, he underwent CT imaging of the chest abdomen and pelvis which I personally reviewed. The results are below. Patient has extensive liver disease, left adrenal metastasis as well as pulmonary metastases. EGD by Dr. Tidwell yesterday revealed a long segment distal esophageal fungating mass. Biopsy is currently pending. Past Med Surg Social Fam HX - Past Medical History Medical history: diabetes Psychiatric history: no psych history - Past Surgical History Surgical History: appendectomy - Social History Smoking Status: Current every day smoker Packs per day: 1 Smokeless Tobacco Status: No Alcohol use: none Drug use: none Medications and Allergies Albuterol Sulfate [Albuterol Inhaler] 2 puff IH Q6HR PRN #1 hfa.aer.ad 11/08/15 [Rx] Ranitidine HCl [Zantac] 150 mg PO BID 12/13/16 [History] 3 Allergy/AdvReac Type Severity Reaction Status Date / Time iodine Allergy Vomiting Verified 12/12/16 18:13 All systems: reviewed and no additional remarkable complaints except as stated Constitutional: Present: lethargy, weight loss Gastrointestinal: Present: abdominal pain, belching, dysphagia, odynophagia Musculoskeletal: Present: back pain Neurological: Present: headache(s) Oncology - Exam - Constitutional Vitals: Temp Pulse Resp BP Pulse Ox 98.3 F 68 15 99/61 94 12/14/16 04:04 12/14/16 04:04 12/14/16 04:04 12/14/16 04:04 12/14/16 04:04 - Head Head exam: Present: atraumatic, normal inspection, normocephalic - Eye Eye exam: Present: normal appearance, conjuntiva pink, sclera anicteric - ENT ENT exam: Present: mucous membranes moist, normal exam, normal oropharynx - Neck Neck exam: Present: full ROM, normal inspection - Respiratory Respiratory exam: Present: decreased breath sounds - Cardiovascular Cardiovascular exam: Present: RRR - GI/Abdominal GI/Abdominal exam: Present: normal bowel sounds, soft - Extremities Exam Extremities exam: Present: normal inspection - Back Exam Back exam: Present: normal inspection - Neurological Exam Neurological exam: Present: alert, CN II-XII intact, oriented X3 Oncology - Results Labs: Laboratory Results - last 48 hr 12/12/16 12/12/16 12/12/16 18:50 18:50 18:50 WBC 7.5 RBC 4.96 Hgb 14.7 Hct 45.1 MCV 90.9 MCH 29.6 MCHC 32.6 RDW 13.3 Plt Count 180 MPV 9.2 L Immature Gran % 0.4 Seg Neutrophils % 70.9 Lymphocytes % 13.7 Monocytes % 11.2 Eosinophils % 3.1 Basophils % 0.7 Neutrophils # 5.3 Lymphocytes # 1.0 Monocytes # 0.8 Eosinophils # 0.2 Basophils # 0.1 Immature Plt Fraction 1.5 PT INR D-Dimer Sodium 134 L Potassium 4.8 H Chloride 104 Carbon Dioxide 20 BUN 17 Creatinine 1.02 Est GFR ( Amer) > 60 Est GFR (Non-Af Amer) > 60 BUN/Creatinine Ratio 17 Glucose 130 H POC Glucose Calculated Osmolality 281 Calcium 10.3 Total Bilirubin 1.3 H Direct Bilirubin 0.7 H Indirect Bilirubin 0.6 AST 51 H ALT 66 H Alkaline Phosphatase 184 H Troponin I 0.01 Serum Total Protein 7.6 Albumin 3.4 L Globulin 4.2 H Albumin/Globulin Ratio 0.8 L Amylase 50 Lipase 20 12/12/16 12/13/16 12/13/16 18:50 02:01 07:15 WBC RBC Hgb Hct MCV MCH MCHC RDW Plt Count MPV Immature Gran % Seg Neutrophils % Lymphocytes % Monocytes % Eosinophils % Basophils % Neutrophils # Lymphocytes # Monocytes # Eosinophils # Basophils # Immature Plt Fraction PT INR D-Dimer 6172 H Sodium Potassium Chloride Carbon Dioxide BUN Creatinine Est GFR ( Amer) Est GFR (Non-Af Amer) BUN/Creatinine Ratio Glucose POC Glucose 132 H 110 H Calculated Osmolality Calcium Total Bilirubin Direct Bilirubin Indirect Bilirubin AST ALT Alkaline Phosphatase Troponin I Serum Total Protein Albumin Globulin Albumin/Globulin Ratio Amylase Lipase 12/13/16 12/13/16 12/13/16 08:15 12:45 17:53 WBC RBC Hgb Hct MCV MCH MCHC RDW Plt Count MPV Immature Gran % Seg Neutrophils % Lymphocytes % Monocytes % Eosinophils % Basophils % Neutrophils # Lymphocytes # Monocytes # Eosinophils # Basophils # Immature Plt Fraction PT 12.9 H INR 1.2 D-Dimer Sodium Potassium Chloride Carbon Dioxide BUN Creatinine Est GFR ( Amer) Est GFR (Non-Af Amer) BUN/Creatinine Ratio Glucose POC Glucose 95 H 158 H Calculated Osmolality Calcium Total Bilirubin Direct Bilirubin Indirect Bilirubin AST ALT Alkaline Phosphatase Troponin I Serum Total Protein Albumin Globulin Albumin/Globulin Ratio Amylase Lipase 12/13/16 12/14/16 20:57 07:56 WBC RBC Hgb Hct MCV MCH MCHC RDW Plt Count MPV Immature Gran % Seg Neutrophils % Lymphocytes % Monocytes % Eosinophils % Basophils % Neutrophils # Lymphocytes # Monocytes # Eosinophils # Basophils # Immature Plt Fraction PT INR D-Dimer Sodium Potassium Chloride Carbon Dioxide BUN Creatinine Est GFR ( Amer) Est GFR (Non-Af Amer) BUN/Creatinine Ratio Glucose POC Glucose 120 H 120 H Calculated Osmolality Calcium Total Bilirubin Direct Bilirubin Indirect Bilirubin AST ALT Alkaline Phosphatase Troponin I Serum Total Protein Albumin Globulin Albumin/Globulin Ratio Amylase Lipase CTA OF THE CHEST 12/12/2016 6:07 pm FINDINGS: Pulmonary Arteries: Pulmonary arteries are adequately opacified for evaluation. No evidence of intraluminal filling defect to suggest pulmonary embolism. Main pulmonary artery is normal in caliber. Mediastinum: There is circumferential mural thickening involving the distal esophagus, with the entire esophagus measuring 3.9 x 3.4 cm just proximal to the gastroesophageal junction (image number [id number]). There is a suggestion of enlarged lymph nodes adjacent to that region, the largest measuring 1.9 x 1.7 cm (image number 69). The more proximal esophagus is unremarkable in appearance. No pathologically enlarged lymph nodes are identified more superiorly. The thoracic aorta is normal in caliber without evidence of dissection. Lungs/pleura: The lungs are without acute process. No focal consolidation or pulmonary edema. No evidence of pleural effusion or pneumothorax. Upper Abdomen: Multiple vague hypodensities are identified within the hepatic parenchyma, not well visualized secondary to the phase of contrast. The largest measures very roughly 4.4 x 4.6 cm in the posterior right hepatic lobe. Another lesion measures very roughly 5.5 x 4.0 cm within the peripheral right hepatic dome. There is nodular enlargement of the left adrenal gland, measuring up to 1.7 cm. There are enlarged celiac axis lymph nodes, the largest measuring 2.9 x 2.5 cm (image number 86). Soft Tissues/Bones: No acute bone or soft tissue abnormality. CT/CT angio chest IMPRESSION: 1. Findings are most compatible with in esophageal carcinoma with evidence of metastatic disease to the lower mediastinum, the upper abdominal lymph nodes, the left adrenal gland, and to the liver. Direct visualization and histopathologic correlation is necessary. 2. No evidence of pulmonary embolism or aortic dissection. Consult Discharge Plan - Plan Referrals: [facility] POSTULANT [Advanced Practice Nurse] - 12/24/16 1:00 pm (New patient and hospital follow up. Packet will be mailed to patient and they will need to bring packet with forms filled out, photo id, insurance card and any medications.)
[2016-12-14] MEDS: Famotidine 20 MG TABLET PO SCH ×2 (09:34→19:54)
[2016-12-14] MEDS: Nicotine 21 MG PATCH.TD24 TD SCH (09:35)
--- NOTE | 2016-12-14 16:49 | Internal Med Progress Note ---
Date of Encounter: 12/14/16 Time of Encounter: 11:40 - Assessment and plan (1) Esophageal mass Current Visit: Yes Status: Acute Assessment and plan: Status post upper GI endoscopy and biopsy. Pathology pending. MRI of the brain ordered per oncology recommendations. Discussed with gastroenterology about placement of a esophageal stent. They will discuss this further with the patient. Pain control. (2) Diabetes Current Visit: Yes Status: Chronic Assessment and plan: Blood sugars are well controlled. Continue current insulin regimen Qualifiers: Diabetes mellitus type: type 2 Diabetes mellitus complication status: without complication Diabetes mellitus laborer marine terminal insulin use: without shelter use Qualified Code(s): E11.9 - Type 2 diabetes mellitus without complications (3) Tobacco abuse Current Visit: Yes Status: Acute Assessment and plan: On nicotine patch (4) Obesity (BMI 30.0-34.9) Current Visit: Yes Status: Chronic (5) Metastases to the liver Current Visit: Yes Status: Acute (6) Metastasis to adrenal gland Current Visit: Yes Status: Acute Qualifiers: Laterality: left Qualified Code(s): 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 Abdominal pain has improved. He is able to swallow better. No new episodes of hematemesis. - Constitutional Vitals: Temp Pulse Resp BP Pulse Ox 98.5 F 67 16 113/67 95 12/14/16 12:00 12/14/16 12:00 12/14/16 12:00 12/14/16 12:00 12/14/16 12:00 General appearance: Present: A&O X 3, no acute distress, obese, answers questions appropriately - Neck Neck exam general surgery: Present: supple, trachea midline. Absent: lymphadenopathy - Respiratory Respiratory exam: Present: CTAB. Absent: accessory muscle use, rales, rhonchi, wheezes - Cardiovascular Cardiovascular exam: Present: RRR, +S1, +S2. Absent: diastolic murmur, gallop, rubs, systolic murmur - GI/Abdominal GI/Abdominal exam: Present: normal bowel sounds, soft, tenderness (epigastric), no peritoneal signs. Absent: distended - Extremities Exam Extremities exam: Present: warm, radial pulses palpable and symmetrical. Absent : calf tenderness, cyanotic, pedal edema - Neurological Exam Neurological exam: Present: alert, oriented X3, no focal deficits. Absent: facial droop, speech deficit Internal Medicine: Result - Labs CBC & Chem 7: 12/12/16 18:50 12/12/16 18:50 - ABG Interpretation ABG results: PT/INR, D-dimer PT 12.9 Seconds (9.4-12.1) H 12/13/16 08:15 D-Dimer 6172 ng/mLFEU (0-500) H 12/12/16 18:50 - Impressions Impressions Tibia/Fibula X-Ray 12/14/16 00:00 IMPRESSION: No acute osseous abnormality the right tib-fib. No radiopaque foreign body. D/ / Riccardo Guo MD / Riccardo Guo MD Interpreting Provider: Riccardo Guo MD Consult Discharge Plan - Plan Referrals: [facility] DESK INTERVIEWER [Advanced Practice Nurse] - 12/24/16 1:00 pm (New patient and hospital follow up. Packet will be mailed to patient and they will need to bring packet with forms filled out, photo id, insurance card and any medications.)
[2016-12-14] MEDS: *HR* HYDROmorphone (PF) 1 MG/ML SYRINGE IVP PRN ×2 (17:46→21:43)
--- NOTE | 2016-12-14 18:25 | Electrocardiograph Report ---
[place] [id number] Test Date: 2016-12-12 Pat Name: Sergo Varghese Department: 102 Room: 3A22 Gender: M Medical Records Auditor: : 1955 Requested By: Osei Shields Order Number: [id number] Reading MD: Claudia Howard Measurements Intervals [place] Rate: 102 P: 11 [place]: 190 QRS: 3 QRSD: 89 T: 46 QT: 326 QTc: 385 Interpretive Statements SINUS TACHYCARDIA POSSIBLE LEFT ATRIAL ENLARGEMENT [-0.1mV P WAVE IN V1/V2] NONSPECIFIC T-WAVE ABNORMALITY ABNORMAL RHYTHM ECG Electronically Signed On 12-14-2016 18:23:29 EDT by Claudia Howard
[2016-12-15] MEDS: Insulin LISPRO 300 UNITS/3 ML VIAL SQ SCH ×3 (00:30→12:29)
[2016-12-15] MEDS: *HR* HYDROcodone/Acet 5/325 mg TABLET PO PRN ×3 (05:05→17:19)
--- NOTE | 2016-12-15 08:14 | Oncology Inp Progress Note ---
Date of Encounter: 12/15/16 Time of Encounter: 07:20 (1) Esophageal mass Current Visit: Yes Status: Acute Assessment and plan: I met with the patient, his and daughter again today. I reviewed MRI imaging. Port placement today. May go home after port placement. Will see me on Tuesday to finalize treatment. Discussed dietary changes and use of Boost/ Ensure to increase calorie intake. He may be d/c from our perspective. Please do not hesitate to call my cell phone at [phone] with concerns or questions Oncology: Subj Interval history: Feeling better this morning. Slept well last night. Still has dysphagia and odynophagia. No other new aches or pains. No other new lumps or bumps. No fever chills or symptoms of infection. MRI results were reviewed with the patient. In addition, I did review the case with Dr. Tidwell. He had a order noncoated stents which will hopefully be in this week with EGD hopefully next week. - Constitutional Vitals: Vital Signs Temp Pulse Resp BP Pulse Ox 12/15/16 07:45 97.7 F 65 14 106/70 96 12/14/16 23:30 98.5 F 70 16 113/61 92 12/14/16 20:03 97.9 F 70 16 103/65 94 12/14/16 12:00 98.5 F 67 16 113/67 95 Intake and Output 12/14/16 12/15/16 12/15/16 16:59 00:59 08:59 Intake Total 480 / 480 300 / 300 Output Total 0 / 0 Balance 480 / 480 300 / 300 Intake: Oral 480 / 480 300 / 300 Output: Urine 0 / 0 Other: Meal Lunch Dinner Percent of Meal Consumed 60% 20% Blood Glucose* 122 131 117 - Head Head exam: Present: atraumatic, normal inspection, normocephalic - Eye Eye exam: Present: normal appearance, conjuntiva pink, sclera anicteric - ENT ENT exam: Present: mucous membranes moist, normal exam - Neck Neck exam: Present: full ROM, normal inspection - Respiratory Respiratory exam: Present: CTAB - Cardiovascular Cardiovascular exam: Present: RRR - GI/Abdominal GI/Abdominal exam: Present: normal bowel sounds, soft - Extremities Exam Extremities exam: Present: normal inspection - Neurological Exam Neurological exam: Present: alert, CN II-XII intact, oriented X3, no focal deficits Oncology: Obj Data - Labs CBC & Chem 7: 12/12/16 18:50 12/12/16 18:50 Labs: Laboratory Results - last 24 hr 12/14/16 12/14/16 12/15/16 11:56 21:06 00:24 POC Glucose 122 H 131 H 200 H 12/15/16 12/15/16 00:26 05:43 POC Glucose 197 H 117 H - Impressions Impressions Tibia/Fibula X-Ray 12/14/16 00:00 IMPRESSION: No acute osseous abnormality the right tib-fib. No radiopaque foreign body. D/ / Riccardo Guo MD / Riccardo Guo MD Interpreting Provider: Riccardo Guo MD Brain MRI 12/14/16 07:59 IMPRESSION: 1. No acute intracranial abnormality or evidence of intracranial metastatic disease. 2. Minimal chronic white matter microvascular ischemic changes. D/ / Wilian Santos MD / Wilian Santos MD Interpreting Provider: Wilian Santos MD - Imaging and cardiology MRI - head Status: image reviewed by me Additional comments: MRI OF THE BRAIN WITHOUT AND WITH CONTRAST 12/14/2016 5:03 pm TECHNIQUE: Multiplanar multisequence MRI of the head/brain was performed without and with the administration of intravenous contrast. COMPARISON: None. HISTORY: ORDERING SYSTEM PROVIDED HISTORY: Headache/Esophageal cancer Additional tech notes: CFS@1000--JMR Initial encounter. Chronic illness. Metastatic esophageal cancer. Headaches for 2 months. FINDINGS: INTRACRANIAL STRUCTURES/VENTRICLES: Parenchymal volume is commensurate with age. There are a few scattered punctate foci of T2/FLAIR hyperintensity in the cerebral white matter, which are nonspecific but generally ascribed to sequela of chronic microvascular ischemia. No mass effect or midline shift. No abnormal extra-axial fluid collection. The ventricles and sulci are normal in size and configuration. The sellar/suprasellar regions appear unremarkable. The normal signal voids within the major intracranial vessels appear maintained. No abnormal focus of enhancement is seen within the brain. ORBITS: Orbital structures are normal. SINUSES: The visualized paranasal sinuses and mastoid air cells are well aerated. BONES/SOFT TISSUES: Marrow signal is within normal limits. Soft tissues are unremarkable. MR/MR head/brain wo/w con IMPRESSION: 1. No acute intracranial abnormality or evidence of intracranial metastatic disease. 2. Minimal chronic white matter microvascular ischemic changes. - ABG Interpretation ABG results: PT/INR, D-dimer PT 12.9 Seconds (9.4-12.1) H 12/13/16 08:15 D-Dimer 6172 ng/mLFEU (0-500) H 12/12/16 18:50 Consult Discharge Plan - Plan Referrals: Alma West, REVENUE MANAGER [Advanced Practice Nurse] - 12/24/16 1:00 pm (New patient and hospital follow up. Packet will be mailed to patient and they will need to bring packet with forms filled out, photo id, insurance card and any medications.)
[2016-12-15] MEDS: Famotidine 20 MG TABLET PO SCH (09:23)
[2016-12-15] MEDS: Nicotine 21 MG PATCH.TD24 TD SCH (09:23)
[2016-12-15] MEDS: 0.9 % Sodium Chloride 1,000 ML IVC SCH ×2 (12:27)
[2016-12-15] MEDS ORDERED: Heparin 1,000 UNITS/500 mL NS 500 ML ONE (13:57)
--- NOTE | 2016-12-15 14:18 | Discharge Summary ---
Date of Encounter: 12/15/16 Time of Encounter: 14:15 - Discharge Diagnosis (1) Esophageal mass Priority: Primary Status: Acute (2) Diabetes Priority: Secondary Status: Chronic Qualifiers: Diabetes mellitus type: type 2 Diabetes mellitus complication status: without complication Diabetes mellitus custodial insulin use: without content curator use Qualified Code(s): E11.9 - Type 2 diabetes mellitus without complications (3) Tobacco abuse Priority: Secondary Status: Acute (4) Obesity (BMI 30.0-34.9) Priority: Secondary Status: Chronic (5) Metastases to the liver Priority: Secondary Status: Acute (6) Metastasis to adrenal gland Priority: Secondary Status: Acute Qualifiers: Laterality: left Qualified Code(s): 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 Priority: Secondary Status: Acute (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 Priority: Secondary Status: Acute Qualifiers: Lymph node location: intra-abdominal region Qualified Code(s): 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 - Discharge Medications Prescriptions: HYDROcodone/Acet 5/325 mg [[place] 5-325 mg] 1 tab PO Q4-6H PRN #30 tablet PRN Reason: Mild To Moderate Pain Nicotine Patch [Nicoderm] 21 mg TD DAILY #30 patch.td24 Omeprazole [PriLOSEC] 40 mg PO DAILY #30 cap Home Medications: Albuterol Sulfate [Albuterol Inhaler] 2 puff IH Q6HR PRN #1 hfa.aer.ad 11/08/15 [Rx] HYDROcodone/Acet 5/325 mg [[place] 5-325 mg] 1 tab PO Q4-6H PRN #30 tablet [Rx] Nicotine Patch [Nicoderm] 21 mg TD DAILY #30 patch.td24 12/15/16 [Rx] Omeprazole [PriLOSEC] 40 mg PO DAILY #30 cap 12/15/16 [Rx] Allergies/Adverse Reactions: 3 Allergy/AdvReac Type Severity Reaction Status Date / Time iodine Allergy Vomiting Verified 12/12/16 18:13 Procedures/tests Complete & Pending: Procedures Performed prior 72 hours Category Date Time Status IR cvc insert with port [IR] Stat IR 12/15/16 06:58 Ordered IR us guide needle place [IR] Routine IR 12/15/16 Ordered MR head/brain wo/w con [MR] Routine MRI 12/14/16 07:59 Completed Date of admission: 12/13/16 09:28 Primary care physician: PCP NONE Consults: 12/13/16 16:55 Consult to Oncology [CONS] Routine Consulting Provider: [facility] Reason for Consult: New dx met esoph cancer Time Notified: 16:56 Call Completed: Yes Discharging clinician: Edilia Burk Anticipated date of discharge: 12/15/16 - Patient Status Disposition: Home, Self-Care Condition: Good Functional capacity at discharge: independent ambulation - Discharge Instructions Instructions: Diabetes Mellitus Type 2 in Adults (DC) Follow Up With: Jerald Ramirez MD [Partnered Physician] - 12/20/16 11:40 am Alma West CNP [Advanced Practice Nurse] - 12/24/16 1:00 pm (New patient and hospital follow up. Packet will be mailed to patient and they will need to bring packet with forms filled out, photo id, insurance card and any medications.) Camilla Tidwell MD [Partnered Physician] - (Web Request entered. Office will call patient at home with date and time of appt. Thank you) - Diet and Activity Activity: increase activity as tolerated Diet: diabetic diet, low fat, low cholesterol, low salt diet Hospital course: Mr. Varghese is a 61 year old male patient with a history of tobacco abuse, diabetes mellitus who presented to the ER with complaints of abdominal pain and chest discomfort along with dysphagia and weight loss over the past several months. During workup in the ER, he underwent CT angiogram which did not show any pulmonary embolism but he was found to have esophageal mass with enlarged lymph nodes in the mediastinum and abdomen, and concern for metastatic lesions to left adrenal gland and liver. Gastroenterology was consulted and patient underwent upper GI endoscopy which showed presence of esophageal mass. This was biopsied. Oncology was consulted. They recommended placement of an esophageal stent. GI discussed with the patient and will make arrangements for patient to have stent placed as outpatient after discharge. He also underwent MRI of the brain which did not show any metastatic lesions. Per oncology recommendations patient underwent port catheter placement today. He will be discharged home today and will follow up with GI and oncology as outpatient. - Time Spent with Patient Total time spent providing and/or coordinating discharge services: Greater than 30 minutes (35 min) - Constitutional Vitals: Temp Pulse Resp BP Pulse Ox 98.1 F 73 16 105/66 94 12/15/16 12:29 12/15/16 12:29 12/15/16 12:29 12/15/16 12:12/15/16 12:29 General appearance: Present: A&O X 3, no acute distress, obese, answers questions appropriately - Neck Neck exam general surgery: Present: supple, trachea midline. Absent: lymphadenopathy - Respiratory Respiratory exam: Present: chest wall tenderness, CTAB. Absent: accessory muscle use, rales, rhonchi, wheezes - Cardiovascular Cardiovascular exam: Present: RRR, +S1, +S2. Absent: diastolic murmur, gallop, rubs, systolic murmur - GI/Abdominal GI/Abdominal exam: Present: normal bowel sounds, soft, tenderness (epigastric pain), no peritoneal signs. Absent: distended - Extremities Exam Extremities exam: Present: warm, radial pulses palpable and symmetrical. Absent : calf tenderness, cyanotic, pedal edema - Neurological Exam Neurological exam: Present: alert, CN II-XII intact, oriented X3, no focal deficits. Absent: facial droop, speech deficit - Skin Skin exam: Present: dry, intact
[2016-12-15] MEDS ORDERED: ceFAZolin 2,000 MG in D5% in Water (Mini-Bag+) 100 ML IVPB ONE (14:28)
--- NOTE | 2016-12-15 14:29 | Pre-Sedation Evaluation ---
Pre-sedation evaluation - Pre-sedation checklist Date of procedure: 12/15/16 Procedure: port insert Recent Vitals: Last Vital Signs Temp 98.1 F 12/15/16 12:29 Pulse 73 12/15/16 12:29 Resp 16 12/15/16 12:29 BP 105/66 12/15/16 12:29 Pulse Ox 94 12/15/16 12:29 H&P (including ROS) documented in medical record: Yes Previous reaction to sedatives/anesthetics: No Dietary Status: NPO after Midnight Airway Assessment: Patient can open mouth completely, TMJ function normal, Micrognathia (under-bite, receding chin) absent, Neck with adequate range of motion Dentition: full dentition Possible difficult airway: No ASA Classification *see protocol: CLASS II-Mild systemic disease Plan of Care: Pt appropriate candidate for procedure/moderate/conscious sedation , Risks/benefits of procedure/sedation discussed w/ patient/family, If not NPO; Risk of intake outweiged by necessity to perform procedure
[2016-12-15] MEDS ORDERED: 0.9 % Sodium Chloride 500 ML ONE (14:33)
[2016-12-15] MEDS: *HR* Midazolam HCl 2 MG/2 ML VIAL IVP PRN ×2 (14:42→14:47)
[2016-12-15] MEDS: *HR* FentaNYL (PF) 100 MCG/2 ML VIAL IVP PRN ×2 (14:42→14:47)
--- NOTE | 2016-12-15 15:09 | IR Procedure Note ---
Date of procedure: 12/15/16 Consent Obtained: Written consent Timeout: Correct patient and procedure verified, Correct site verified, Time out performed, Skin prep completed Indications: esophageal cancer Procedure Performed: port Site/Technique: rt IJ to RA Results/Findings: adquate placement Estimated blood loss (cc): 4 Complications: None; Tolerated procedure well Post Procedure Treatment Plan: use port
[2016-12-15 17:35] VITALS: BP 126/75
[2016-12-22 21:25] LABS: MMR by IHC Specimen 17SM-10028 A1; MMR by IHC with MLH1 NORMAL; MMR by IHC with MSH2 NORMAL; MMR by IHC with MSH6 NORMAL; MMR by IHC with PMS2 NORMAL
[2016-12-23 09:26] LABS: MMR by IHC Result NORMAL
== END 2016-12-15 17:56 | disposition home or self-care (01) | DRG 375 ==
LOC: 3ANU 17:54 → EMEROO 17:54 → 3ANU 12-13 00:44 → SUATTDRO 12-13 09:28
PROVIDERS: ADMIT Pediatrics; ATTEND Internal Medicine
PROC: ENDOEBX (2016-12-13 13:45)